=== PATIENT | female | born 1990 | race Caucasian/White ===

== ENCOUNTER 2016-09-05 14:05 | Emergency (ER) | payer SELFPAY ==
--- NOTE | 2016-09-14 18:05 | ER ---
ADMIT: 09/05/2016 RM/LOC: ER [facility] MR#: [id number] [address] [id number] GIULIANO MEJÍA [address] [place] [id number] Emergency Room Report SEX: F AGE: 25 : 1990 DATE: 09/05/2016 ADDENDUM: CHIEF COMPLAINT: Dysuria. HISTORY OF PRESENT ILLNESS: This is a 25-year-old female, who has had dysuria and frequency for about 6 weeks now. Today, she said it got so bad that she was urinating blood and it was getting more painful, so she came into the ER. She did have some vomiting few days ago but that is better now. Urine showed 3+ leukocyte esterase, 895 white blood cells, rare white blood cell clumps, 53 red blood cells, few bacteria. I gave her Rocephin in the emergency room. I am sending her home with Bactrim for 10 days and having her follow up with her PCP if worsens. ODILIA Soto / Yayo De Oliveira MD / [employer] JOB #: [id number] CC: Yayo De Oliveira MD, Attending Physician David Sherwood MD, Family Physician
== END 2016-09-05 15:31 | disposition home or self-care (01) ==
LOC: ER 14:05
DX: N39.0 Urinary tract infection, site not specified (principal); F17.210 Nicotine dependence, cigarettes, uncomplicated; Z88.0 Allergy status to penicillin